=== PATIENT | female | born 1995 | race Caucasian/White ===

== ENCOUNTER 2017-07-31 11:02 | Day surgery (SDC) | payer OTHER ==
[~2017-07-31] VITALS: Ht 162.6 cm; Wt 55.3 kg
[~2017-07-31 11:02] MED LIST: OCELLA 3 MG-0.1 EACH; PERCOCET 7.5-31 EACH PO
--- NOTE | 2017-07-31 13:38 | NUR ---
07/31/17 1338 [facility] O2 DECREASED TO 6L VIA OM.
--- NOTE | 2017-07-31 14:39 | NUR ---
PT IS BROUGHT BACK TO FROM PACU. PT IS NAUSEATED AND DRY HEAVING. PT HAS BEEN MAXED OUT ON HER ZOFRAN ORDERED BY FARM CROPS TEACHER, DUONG. PT DECLINES WATER OR CRACKERS AT THIS TIME. CALL LIGHT IT WITHIN REACH. LIGHTS ARE TURNED OFF. PT'S FAMILY IS IN THE ROOM WITH HER AT THIS TIME. NO OTHER C/O'S AT THIS TIME. WILL REASSESS WITHIN THE HOUR.
--- NOTE | 2017-08-28 07:48 | OR ---
[facility] [address] [place], [place] [address] Signed DATE OF PROCEDURE: 07/31/17 PREOPERATIVE DIAGNOSIS Left lower abdominal pain greater than 1 month, episodic rectal bleeding. POSTOPERATIVE DIAGNOSIS: Normal-appearing colon and rectum and ilium. PROCEDURE: Total colonoscopy to cecum with intubation of ilium with biopsy. SURGEON: Duong Victoria MD. ANESTHESIA Intravenous sedation (Fentanyl 200 mcg, Versed 11 mg), with addition of Propofol infusion (Duong Angulo CRNA). 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 Madera for consideration of persistent left lower abdominal pain with episodic rectal bleeding. Evaluation by her web design intern, Dr. Bermudez, shows no sign of gynecologic problem. She is admitted to undergo colonoscopy. Understands the risks of bleeding, infection, and perforation. Notably, she has no family history of inflammatory bowel disease, though her grandfather had colon cancer in his 50s. FINDINGS The prep was excellent. Complete colonoscopy was undertaken to the cecum with intubation of the ileum. Passage to the sigmoid was particularly difficult and prolonged. Poor tolerance of discomfort was noted despite 200 mcg of Fentanyl and 11 mg of Versed, and on that basis, addition of Propofol infusional anesthesia was given. The colon was very well prepped as was the ileum and there was no evidence of inflammatory lesion, polyps, diverticular formation, colitis, or cancer. Biopsies were taken throughout to assess for occult colitis. DESCRIPTION OF PROCEDURE The patient was brought to the endoscopy suite and placed in lateral decubitus position. Given intravenous sedation to the point of slurred speech and nystagmus. Additional sedation was given as needed. Digital rectal examination was normal. An Olympus video colonoscope was passed in the rectum and manipulated into the sigmoid. Passage much beyond 40 cm was quite difficult due to angulation deformity of the colon. Additional sedation was given as necessary. Extreme care was taken to avoid complications such as perforation. Ultimately, the scope was changed out for a pediatric Electronically Signed By: DUONG VICTORIA MD 08/28/17 0748 PATIENT NAME: JAKE SOLIMAN OPERATIVE REPORT DATE OF : [birth year] PHYSICIAN: DUONG VICTORIA MD REPORT #: [id number] REPORT IS CONFIDENTIAL AND NOT TO BE RELEASED WITHOUT AUTHORIZATION [facility] [address] [place] [address] Signed colonoscope which was passed and the same phenomenon was noted at about the same area in the junction between the sigmoid and left colon. Another adult scope was obtained and anesthesia provided for additional sedation to include Propofol. As by this time, she has had 200 mcg of Fentanyl and 11 mg of Versed. Prior to initiation of Propofol sedation, however, the scope was passed beyond the sigmoid to the left colon and the splenic flexure. Propofol was quite useful in allowing for more relaxation to pass the scope ultimately to the cecum itself. The ileocecal valve and appendiceal orifice were normal. The ileocecal valve was intubated and the ilium appeared completely normal. Biopsies were obtained nevertheless. The scope was then withdrawn to the cecum where biopsies were taken of the right colon. Careful withdrawal of scope showed no evidence of polyps, diverticular formation, colitis, or cancer. Retroflex view in the rectum was similarly normal, though there was some edema and some inflammatory change, no doubt related to various manipulations with the scopes. We will await the pathology on biopsies. Scope was removed and the patient was taken to recovery room in good condition. CONCLUDING DIAGNOSIS Uncertain etiology of her left lower abdominal pain and definitely that of rectal bleeding, both are much improved currently. She may have irritable bowel syndrome. We will recommend a low FODMAP diet in the meantime. We will see her back in 4-6 weeks and assess her progress. MD KYLAH Javier/Millie /[id number] cc: MD Avtar Lopez MD Electronically Signed By: DUONG VICTORIA MD 08/28/17 0748 PATIENT NAME: TABITHA SOLIMANELYNN MIGUE OPERATIVE REPORT DATE OF : [birth year] PHYSICIAN: DUONG VICTORIA MD REPORT #: [id number] REPORT IS CONFIDENTIAL AND NOT TO BE RELEASED WITHOUT AUTHORIZATION
== END 2017-07-31 16:00 | disposition home or self-care (01) ==
LOC: DS 11:02 → OPS 11:02
PROVIDERS: Surgery
PROC: 0DBP8ZX Excision of Rectum, Via Natural or Artificial Opening Endoscopic, Diagnostic (ICD-10-PCS; 2017-07-31)
PROC: 0DBB8ZX Excision of Ileum, Via Natural or Artificial Opening Endoscopic, Diagnostic (ICD-10-PCS; 2017-07-31)
PROC: 0DBM8ZX Excision of Descending Colon, Via Natural or Artificial Opening Endoscopic, Diagnostic (ICD-10-PCS; 2017-07-31)
PROC: 0DBH8ZX Excision of Cecum, Via Natural or Artificial Opening Endoscopic, Diagnostic (ICD-10-PCS; principal; 2017-07-31 11:15)
DX: R10.32 Left lower quadrant pain (principal); K21.9 Gastro-esophageal reflux disease without esophagitis; Z90.49 Acquired absence of other specified parts of digestive tract; Z96.652 Presence of left artificial knee joint
CPT/HCPCS: 00810; J2250; J2405; J2704; J3010; J7120

== ENCOUNTER 2019-02-08 16:43 | Inpatient (IN) | payer BC ==
[~2019-02-08] VITALS: Ht 162.6 cm; Wt 75.0 kg
--- NOTE | 2019-02-08 18:00 | PR ---
[facility] [address] [place], [place] [address] Signed Progress Notes IP Datetime Report Generated by MASHA: 02/08/2019 18:00 PROGRESS NOTES: [id number] Impression: Reassuring heart rate Procedures: Artificial ROM; Sterile Vag Exam Plan: Continue present management Informed Consent Obtain: Vaginal Delivery; Induction of Labor; Risks, Benefits and Alternatives Discussed VITAL SIGNS: [id number] Vital Signs: Reviewed VS Notable Details: mild HTN EXAM: [id number] Dilatation: 3.0 Effacement: 100 Station: -2 Uterine Contractions: q 4 min MEMBRANES: [id number] Membrane Status: Intact ROM Note: AROM with copious clear fluid seen Comments: Doing well. Labs with plat 172k, UA 5.2, Creat 0.76, BUN 13, SGOT 27. Will continue. Fetus A: [id number] FHR Baseline: a30 Variability: Moderate 6-25bpm Accelerations: 15X15 Decelerations: None FHR Category: Category I Presentation: Vertex Comments on Fetus A: No evidence of metabolic acidosis Fetus B: [id number] Signing Physician: Nilda Bermudez MD Copies: ~ *Electronically Signed* 02/08/19 1800 NILDA BERMUDEZ MD PATIENT NAME: JAKE ALBARRAN PROGRESS NOTE DATE OF : 93 PHYSICIAN: NILDA BERMUDEZ MD RPT #: [id number] REPORT IS CONFIDENTIAL AND NOT TO BE RELEASED WITHOUT AUTHORIZATION
--- NOTE | 2019-02-08 19:54 | PR ---
[facility] [address] [place], [place] [address] Signed Progress Notes IP Datetime Report Generated by MASHA: 02/08/2019 19:54 PROGRESS NOTES: [id number] Impression: Slow Progression of Labor Procedures: Scalp Electrode; Sterile Vag Exam Plan: Continue present management Informed Consent Obtain: Vaginal Delivery; Induction of Labor; Risks, Benefits and Alternatives Discussed VITAL SIGNS: [id number] Vital Signs: Reviewed VS Notable Details: mild HTN EXAM: [id number] Dilatation: 3.0 Effacement: 100 Station: -1 Uterine Contractions: q 1 to 3 min MEMBRANES: [id number] Membrane Status: Intact ROM Note: AROM with copious clear fluid seen Comments: Prolonged decel which has now recovered but close observation will be needed. She required multiple position changes as well as O2 and some IVF. She received a single dose of subq terb to allow recovery as well. Will continue observation at this time. Fetus A: [id number] FHR Baseline: 120 Variability: Moderate 6-25bpm Accelerations: 10X10 Decelerations: Prolonged FHR Category: Category II Presentation: Vertex Comments on Fetus A: fetus recovering currently but previously prolonged decel Fetus B: [id number] Signing Physician: Nilda Bermudez MD Copies: ~ *Electronically Signed* 02/08/191953 NILDA BERMUDEZ MD PATIENT NAME: JAKE ALBARRAN PROGRESS NOTE DATE OF : 93 PHYSICIAN: NILDA BERMUDEZ MD RPT #: [id number] REPORT IS CONFIDENTIAL AND NOT TO BE RELEASED WITHOUT AUTHORIZATION
--- NOTE | 2019-02-08 19:59 | PR ---
[facility] [address] [facility] [place], [place] [address] Signed Progress Notes IP Datetime Report Generated by MASHA: 02/08/2019 19:59 PROGRESS NOTES: [id number] Impression: Slow Progression of Labor Procedures: Scalp Electrode; Sterile Vag Exam Plan: Continue present management Informed Consent Obtain: Vaginal Delivery; Induction of Labor; Risks, Benefits and Alternatives Discussed VITAL SIGNS: [id number] Vital Signs: Reviewed VS Notable Details: mild HTN EXAM: [id number] Dilatation: 3.0 Effacement: 100 Station: -1 Uterine Contractions: q 1 to 3 min MEMBRANES: [id number] Membrane Status: Intact ROM Note: AROM with copious clear fluid seen Comments: Continue close observation. Fetus A: [id number] FHR Baseline: unable to determine Variability: Marked >25bpm Accelerations: 10X10 Decelerations: None FHR Category: Category II Presentation: Vertex Comments on Fetus A: reassuring with marked variability though baseline cannot be determined presently Fetus B: [id number] Signing Physician: Nilda Bermudez MD Copies: ~ *Electronically Signed* 02/08/191958 NILDA BERMUDEZ MD PATIENT NAME: JAKE ALBARRAN PROGRESS NOTE DATE OF : 93 PHYSICIAN: NILDA BERMUDEZ MD RPT #: [id number] REPORT IS CONFIDENTIAL AND NOT TO BE RELEASED WITHOUT AUTHORIZATION
--- NOTE | 2019-02-09 09:42 | PR ---
[facility] [address] [facility] [place], [place] [address] Signed PP Progress Notes Datetime Report Generated by CPN: 02/09/2019 09:42 SUBJECTIVE: [id number] Pain: Within normal limits Vital Signs: [id number] Vital Signs: Reviewed; Within Normal Limits EXAM: [id number] Cardiovascular: Not Done Respiratory: Not Done Abdomen/Uterus: Abnormal Lochia: Normal Vulva/Perineum: Not Done Breasts: Not Done CVA Tenderness: Not Done Extremities: Normal Incision: Not Applicable Progress: Normal Exam Comments: Fundus firm, NT @ U-1. H/H 10.9/31.9, WBC 14.7, plat 150k IMPRESSION/PLAN/PROCEDURES: [id number] Impression: Normal progression Other Impression: BPs improved Plan: Continue present management Progress Notes: Doing well. BPs improving. Probable D/C home tomorrow. Signing Physician: Nilda Bermudez MD Copies: ~ *Electronically Signed* 02/09/19 0942 NILDA BERMUDEZ MD PATIENT NAME: JAKE ALBARRAN PROGRESS NOTE DATE OF : 93 PHYSICIAN: NILDA BERMUDEZ MD RPT #: [id number] REPORT IS CONFIDENTIAL AND NOT TO BE RELEASED WITHOUT AUTHORIZATION
--- NOTE | 2019-02-10 07:25 | PR ---
[facility] [address] [facility] [place], [place] [address] Signed PP Progress Notes Datetime Report Generated by CPAlba: 02/10/2019 07:25 SUBJECTIVE: [id number] Pain: Within normal limits Vital Signs: [id number] Vital Signs: Reviewed; Within Normal Limits EXAM: [id number] Cardiovascular: Not Done Respiratory: Not Done Abdomen/Uterus: Abnormal Lochia: Normal Vulva/Perineum: Normal Breasts: Not Done CVA Tenderness: Not Done Extremities: Normal Incision: Not Applicable Progress: Normal Exam Comments: Fundus firm, NT @ U-1. Perineum with minimal edema IMPRESSION/PLAN/PROCEDURES: [id number] Impression: Normal progression Other Impression: BPs improved Plan: Discharge Procedures: Rhogam Progress Notes: Doing well. She is ready for D/C. Signing Physician: Nilda Bermudez MD Copies: ~ *Electronically Signed* 02/10/19724 NILDA BERMUDEZ MD PATIENT NAME: JAKE ALBARRAN PROGRESS NOTE DATE OF : 93 PHYSICIAN: NILDA BERMUDEZ MD RPT #: [id number] REPORT IS CONFIDENTIAL AND NOT TO BE RELEASED WITHOUT AUTHORIZATION
== END 2019-02-10 17:30 | disposition home or self-care (01) | DRG 807 ==
LOC: FBCO 16:43 → FBC 16:45
PROVIDERS: ADMIT Obstetrics & Gynecology
PROC: 10E0XZZ Delivery of Products of Conception, External Approach (ICD-10-PCS; principal; 2019-02-08)
PROC: 0KQM0ZZ Repair Perineum Muscle, Open Approach (ICD-10-PCS; 2019-02-08)
PROC: 10907ZC Drainage of Amniotic Fluid, Therapeutic from Products of Conception, Via Natural or Artificial Opening (ICD-10-PCS; 2019-02-08)
PROC: 3E0234Z Introduction of Serum, Toxoid and Vaccine into Muscle, Percutaneous Approach (ICD-10-PCS; 2019-02-09)
DX: O14.94 Unspecified pre-eclampsia, complicating childbirth (principal); Z37.0 Single live birth; Z3A.39 39 weeks gestation of pregnancy; O26.893 Other specified pregnancy related conditions, third trimester; O76 Abnormality in fetal heart rate and rhythm complicating labor and delivery; O69.1XX0 Labor and delivery complicated by cord around neck, with compression, not applicable or unspecified; O70.1 Second degree perineal laceration during delivery; Z67.11 Type A blood, Rh negative; O99.52 Diseases of the respiratory system complicating childbirth; J30.2 Other seasonal allergic rhinitis; O24.420 Gestational diabetes mellitus in childbirth, diet controlled
CPT/HCPCS: 36415; 82565; 83030; 84450; 84520; 84550; 85025; 85027; 86850; 86900; 86901; J2590; J2790

== ENCOUNTER 2021-07-16 01:29 | Inpatient (IN) | payer BC ==
--- NOTE | 2021-07-16 07:22 | PR ---
[facility] [address] [facility] [place], [place] [address] Signed Progress Notes IP Datetime Report Generated by CPAlba: 07/16/2021 07:22 PROGRESS NOTES: [id number] Impression: Normal Progression of Labor Procedures: Artificial ROM Plan: Continue Present Management VITAL SIGNS: [id number] Vital Signs: Reviewed; Within Normal Limits EXAM: [id number] Dilatation: 4.0 Effacement: 90 Station: -2 Contractions: q 1 to 3 min MEMBRANES: [id number] Comments: Some progress. Will encourage position changes. FETUS A: [id number] FHR Baseline: 140 Variability: Moderate 6-25bpm Accelerations: 10X10 Decelerations: None FHR Category: Category I Presentation: Vertex Comments on Fetus A: sketchy but reassuring FETUS B: [id number] Signing Physician: Nilda Bermudez MD Copies: ~ *Electronically Signed* 07/16/21721 NILDA BERMUDEZ MD PATIENT NAME: JAKE ALBARRAN PROGRESS NOTE DATE OF : 93 PHYSICIAN: NILDA BERMUDEZ MD RPT #: [id number] REPORT IS CONFIDENTIAL AND NOT TO BE RELEASED WITHOUT AUTHORIZATION
--- NOTE | 2021-07-16 12:38 | PR ---
[facility] [address] [facility] [place], [place] [address] Signed PP Progress Notes Datetime Report Generated by MASHA: 07/16/2021 12:38 SUBJECTIVE: [id number] Pain: Abnormal Pain Comments: swelling and pain at perineum Vital Signs: L3173411 Vital Signs: Reviewed; Within Normal Limits EXAM: Ongoing Abdomen/Uterus: Abnormal Vulva/Perineum: Abnormal Exam Comments: approx 3 cm hematoma on left perineum (to the left of the laceration). It is tense. It does not extend into the vagina. Fundus firm, at U-4 IMPRESSION/PLAN/PROCEDURES: [id number] Other Impression: perineal hematoma Plan: Continue Present Management Other Plans: ice to area, avoid sitting Progress Notes: Small hematoma without evidence of extension into the vagina. No additional treatment is needed other than continuing the icing and avoiding pressure on the area. Discussed pain management with the patient as well. Will continue observation. Signing Physician: Nilda Bermudez MD Copies: ~ *Electronically Signed* 07/16/21 1238 NILDA BERMUDEZ MD PATIENT NAME: REBECCA ALBARRANNN MIGUE PROGRESS NOTE DATE OF : 93 PHYSICIAN: NILDA BERMUDEZ MD RPT #: [id number] REPORT IS CONFIDENTIAL AND NOT TO BE RELEASED WITHOUT AUTHORIZATION
--- NOTE | 2021-07-17 08:10 | PR ---
[facility] [address] [facility] [place], [place] [address] Signed PP Progress Notes Datetime Report Generated by CPN: 07/17/2021 08:10 SUBJECTIVE: [id number] Pain: Within Normal Limits Pain Comments: Feeling better this am Vital Signs: B3541710 Vital Signs: Reviewed; Within Normal Limits EXAM: Ongoing Cardiovascular: Not Done Respiratory: Not Done Abdomen/Uterus: Abnormal Lochia: Normal Vulva/Perineum: Abnormal Breasts: Not Done CVA Tenderness: Not Done Extremities: Normal Incision: Not Applicable Progress: Normal Exam Comments: Fundus firm, NT @ U-4 Perineum with bruising and swelling L>R but improved from yesterday H/H 11.2/33.2, WBC 10.8, plat 176k IMPRESSION/PLAN/PROCEDURES: [id number] Impression: Normal Progression Other Impression: Perineal hematoma Plan: Discharge Other Plans: ice to area, avoid sitting Progress Notes: She is feeling better and is interested in discharge home today. Her hematoma is improving. Signing Physician: Nilda Bermudez MD Copies: ~ *Electronically Signed* 07/17/21809 NILDA BERMUDEZ MD PATIENT NAME: JAKE ALBARRAN PROGRESS NOTE DATE OF : 93 PHYSICIAN: NILDA BERMUDEZ MD RPT #: [id number] REPORT IS CONFIDENTIAL AND NOT TO BE RELEASED WITHOUT AUTHORIZATION
--- NOTE | 2021-07-17 08:11 | PR ---
[facility] [address] [facility] [place], [place] [address] Signed PP Progress Notes Datetime Report Generated by CPN: 07/17/2021 08:11 SUBJECTIVE: [id number] Pain: Within Normal Limits Pain Comments: Feeling better this am Vital Signs: [id number] Vital Signs: Reviewed; Within Normal Limits EXAM: Ongoing Cardiovascular: Not Done Respiratory: Not Done Abdomen/Uterus: Abnormal Lochia: Normal Vulva/Perineum: Abnormal Breasts: Not Done CVA Tenderness: Not Done Extremities: Normal Incision: Not Applicable Progress: Normal Exam Comments: Fundus firm, NT @ U-4 Perineum with bruising and swelling L>R but improved from yesterday H/H 11.2/33.2, WBC 10.8, plat 176k IMPRESSION/PLAN/PROCEDURES: [id number] Impression: Normal Progression Other Impression: Perineal hematoma Plan: Discharge Other Plans: ice to area, avoid sitting Progress Notes: She is feeling better and is interested in discharge home today. Her hematoma is improving. Signing Physician: Nilda Bermudez MD Copies: ~ *Electronically Signed* 07/17/21810 NILDA BERMUDEZ MD PATIENT NAME: JAKE ALBARRAN PROGRESS NOTE DATE OF : 93 PHYSICIAN: NILDA BERMUDEZ MD RPT #: [id number] REPORT IS CONFIDENTIAL AND NOT TO BE RELEASED WITHOUT AUTHORIZATION
== END 2021-07-17 11:50 | disposition home or self-care (01) | DRG 807 ==
LOC: FBCO 01:29 → FBC 03:20
PROVIDERS: ADMIT Obstetrics & Gynecology; ATTEND Obstetrics & Gynecology
PROC: 10E0XZZ Delivery of Products of Conception, External Approach (ICD-10-PCS; principal; 2021-07-16)
PROC: 0KQM0ZZ Repair Perineum Muscle, Open Approach (ICD-10-PCS; 2021-07-16)
PROC: 10907ZC Drainage of Amniotic Fluid, Therapeutic from Products of Conception, Via Natural or Artificial Opening (ICD-10-PCS; 2021-07-16)
DX: O70.1 Second degree perineal laceration during delivery (principal); Z37.0 Single live birth; Z3A.37 37 weeks gestation of pregnancy; Z20.822 Contact with and (suspected) exposure to COVID-19
CPT/HCPCS: 83030; 85027; 86850; 86870; 86900; 86901; A9270; J2590; J2790; U0003

== ENCOUNTER 2021-08-01 09:20 | Emergency (ER) | payer BC ==
[~2021-08-01] VITALS: Ht 152.4 cm; Wt 62.6 kg
[2021-08-01] MEDS ORDERED: OMEPRAZOLE20 MG PO ×2 (09:58)
[2021-08-01] MEDS ORDERED: BUSPIRONE HCL10 MG PO ×2 (09:58)
[2021-08-01] MEDS ORDERED: BENADRYL ALLERG25 MG PO ×2 (09:59)
[2021-08-01] MEDS ORDERED: ALLEGRA ALLERG180 MG PO ×2 (09:59)
[2021-08-01] MEDS ORDERED: FLONASE ALLERG9.9 ML ×2 (09:59)
[2021-08-01] MEDS ORDERED: IRON240 MG PO ×2 (10:00)
[2021-08-01] MEDS ORDERED: PRENATAL FORMU1 EAC3 PO ×2 (10:00)
[2021-08-02] MEDS ORDERED: DIMENHYDRINATE50 MG PO ×2 (12:40)
[2021-08-02] MEDS ORDERED: EYLEA2 MG/0.05 ×2 (12:40)
--- NOTE | 2021-08-02 21:30 | EKG ---
[facility] [address] [facility] [place] [address] Signed Sinus tachycardia with short LA Right atrial enlargement ST \T\ T wave abnormality, consider inferior ischemia Abnormal ECG When compared with ECG of 01-AUG-2021 09:26, (Unconfirmed) T wave inversion now evident in Inferior leads Nonspecific T wave abnormality now evident in Lateral leads Confirmed by AUGUST PYLE DO ([id number]) on 08/02/2021 9:30:37 PM Electronically Signed By: AUGUST PYLE DO 08/02/210 PATIENT NAME: JAKE ALBARRAN Electrocardiogram DATE OF : 93 PHYSICIAN: AUGUST PYLE DO REPORT #: [id number] REPORT IS CONFIDENTIAL AND NOT TO BE RELEASED WITHOUT AUTHORIZATION
--- NOTE | 2021-08-02 21:32 | EKG ---
[facility] [address] [facility] [place], [place] [address] Signed Sinus rhythm with short [place] Otherwise normal ECG No previous ECGs available Confirmed by AUGUST PYLE DO ([id number]) on 08/02/2021 9:32:11 PM Electronically Signed By: AUGUST PYLE DO 08/02/212131 PATIENT NAME: JAKE ALBARRAN Electrocardiogram DATE OF : 93 PHYSICIAN: AUGUST PYLE DO REPORT #: [id number] REPORT IS CONFIDENTIAL AND NOT TO BE RELEASED WITHOUT AUTHORIZATION
== END 2021-08-01 14:00 | disposition home or self-care (01) ==
LOC: ED 09:20
DX: R07.2 Precordial pain (principal); R06.00 Dyspnea, unspecified; R00.0 Tachycardia, unspecified; Z88.5 Allergy status to narcotic agent; Z79.899 Other long term (current) drug therapy
CPT/HCPCS: 71045; 71260; 80053; 83735; 83880; 84484; 85025; 93005; 93010; 99285-25; A9270; J7030; Q9967

== ENCOUNTER 2021-08-02 12:04 | Day surgery (SDC) | payer BC ==
[~2021-08-02] VITALS: Ht 162.6 cm; Wt 62.0 kg
--- NOTE | ~2021-08-02 | OR ---
[facility] [address] [place], [place] [address] Draft DATE OF OPERATION: 08/02/2021 SURGEON: Nilda Bermudez MD PREOPERATIVE DIAGNOSIS: Possible retained endometrial products. POSTOPERATIVE DIAGNOSIS: Possible retained endometrial products. PROCEDURE: Hysteroscopy D and C. ANESTHESIA: General LMA. ESTIMATED BLOOD LOSS: 25 mL. DRAINS: None. INDICATIONS AND FINDINGS: The patient is a 26-year-old female 3, para 2, AB1, who is now 18 days following her last delivery which was a spontaneous delivery without any complications other than a perineal hematoma which has subsequently resolved. She has been having ongoing discomfort in the pelvic area and initially some low-grade temperature elevations. She has had two courses of antibiotics without significant improvement. Her bleeding has been very minimal. Ultrasound was done which showed probable retained products. She was then taken to the operating room where her uterus was found to be about 12 week size and soft. The os was open and easily accepted #6 dilator. There did appear to be some retained polypoid fragments inside the uterus. DESCRIPTION OF PROCEDURE: The patient was prepped and draped in the dorsal lithotomy position. A weighted speculum was placed and the anterior lip of the cervix was visualized and grasped with a single-tooth tenaculum. The os easily accepted #6 dilator and she was dilated to a #8. The MyoSure device was then placed and the cavity evaluated. There did appear to be multiple polypoid type areas. Subsequent to this, the MyoSure device was removed and D and C was done with removal of some placental type fragments. This was done fairly PATIENT NAME: JAKE ALBARRAN OPERATIVE REPORT DATE OF : 93 REPORT #: [id number] PHYSICIAN: NILDA BERMUDEZ MD PCP: NO PRIMARY CARE PHYSICIAN REPORT IS CONFIDENTIAL AND NOT TO BE RELEASED WITHOUT AUTHORIZATION [facility] [address] [place] [address] Draft gently. The hysteroscope was replaced and there did appear to be another area which had not been removed by the D and C, and this was resected using the MyoSure Lite. Following this, the procedure was terminated. The tenaculum was removed from the cervix. There was no evidence of any ongoing bleeding. The patient was then taken to the recovery room. Her uterus did seem to become smaller and more contracted as the procedure went on. All sponge and needle counts were correct. She was taken to recovery room in good condition. MD EFE TellesW/MODL /[id number] Copies: ~ PATIENT NAME: JAKE ALBARRAN OPERATIVE REPORT DATE OF : 93 REPORT #: [id number] PHYSICIAN: NILDA BERMUDEZ MD PCP: NO PRIMARY CARE PHYSICIAN REPORT IS CONFIDENTIAL AND NOT TO BE RELEASED WITHOUT AUTHORIZATION
[~2021-08-02 12:04] MED LIST changes: +ALLEGRA ALLERG180 MG PO; +BENADRYL ALLERG25 MG PO; +BUSPIRONE HCL10 MG PO; +FLONASE ALLERG9.9 ML; +IRON240 MG PO; +OMEPRAZOLE20 MG PO; +PRENATAL FORMU1 EAC3 PO
[2021-08-02] MEDS ORDERED: DIMENHYDRINATE50 MG PO ×2 (12:40)
[2021-08-02] MEDS ORDERED: EYLEA2 MG/0.05 ×2 (12:40)
--- NOTE | 2021-08-02 15:05 | NUR ---
08/02/21 1505 Sandra Ott 1450- PT ARRIVES TO PACU NONAROUSABLE TO NOXIOUS STIMULI WITH AN OPA IN PLACE. RESP EVEN AND UNLABORED. OXYGEN SAT HIGH 90'S TO 100% ON 6L VIA MASK.
--- NOTE | 2021-08-02 15:48 | NUR ---
1540 PT BACK TO ROOM FROM PACU ALERT AND AWAKE PT REQUEST CHICKEN BROTH AND JELLO TOLERATED WELL.
--- NOTE | 2021-08-02 17:01 | NUR ---
1620 PT UP TO BATHROOM WITH MINIMAL ASSIST, SHE WAS ABLE TO VOID 600ML OF SLIGHTLY BLOOD TINGED URINE.
--- NOTE | 2021-08-02 17:02 | NUR ---
1630 PT DENIES PAIN OR NAUSEA SHE REPORTS READINESS TO GO HOME, RUDI PAD WITH SMALL SPOT OF LIGHT RED BLOOD.
--- NOTE | 2021-08-05 15:53 | PATH ---
[facility] [address] [place], [place] [address] Signed SPECIMEN(S): A RETAINED PLACENTA SPECIMEN SOURCE: A. RETAINED PLACENTA CLINICAL HISTORY: Hysteroscopy DC. 18 days. FINAL PATHOLOGIC DIAGNOSIS: Retained placenta: - Fragments of endometrium with associated necrotic tissue, decidualized change, and prominent vasculature with blood, consistent with features seen in retained placental products. TWK:[facility]:C2NR MICROSCOPIC EXAMINATION: Histologic sections of all submitted blocks are examined by light microscopy. These findings, together with the gross examination, support the pathologic diagnosis. GROSS DESCRIPTION: The specimen, labeled "KE, A.," and designated on the requisition "retained products," is received in formalin and consists of multiple fragments of pink-quintero soft tissue and red-brown clot (6.0 x 4.0 x 1.0 cm). Wood Heel Attacher sections are submitted in cassette (A1). AC (under the direct supervision of a pathologist) The Gross Description was prepared using a voice recognition system. The report was reviewed for accuracy; however, sound-alike word errors, addition and/or deletions may occur. If there is any question about this report, please contact Client Services. PERFORMING LABORATORY: The technical component was performed by [employer], [address] [place] [address] (Pouring Crane Operator: Cuca Bedoya MD; CLIA# [id number]). [facility], [address] [address] (CLIA# [id number]). Diagnostician: Laci Wright MD Pathologist Electronically Signed 08/05/2021 PATIENT NAME: JAKE ALBARRAN PATHOLOGY DATE OF : 93 REPORT #: [id number] PHYSICIAN: [facility] PCP: NO PRIMARY CARE PHYSICIAN REPORT IS CONFIDENTIAL AND NOT TO BE RELEASED WITHOUT AUTHORIZATION [address] [address] Signed Copies: ~ PATIENT NAME: JAKE ALBARRAN PATHOLOGY DATE OF : 93 REPORT #: [id number] PHYSICIAN: [facility] PCP: NO PRIMARY CARE PHYSICIAN REPORT IS CONFIDENTIAL AND NOT TO BE RELEASED WITHOUT AUTHORIZATION
== END 2021-08-02 16:50 | disposition home or self-care (01) ==
LOC: DS 12:04
PROVIDERS: ATTEND Obstetrics & Gynecology
PROC: 10D18ZZ Extraction of Products of Conception, Retained, Via Natural or Artificial Opening Endoscopic (ICD-10-PCS; principal; 2021-08-02 14:00)
DX: O73.1 Retained portions of placenta and membranes, without hemorrhage (principal); Z20.822 Contact with and (suspected) exposure to COVID-19
CPT/HCPCS: 80053; 83735; J0131; J0690; J1100; J1644; J1885; J2250; J2405; J2590; J2704; J2765; J3010; J7121; U0003

== ENCOUNTER 2021-08-05 17:46 | Emergency (ER) | payer BC ==
[~2021-08-05] VITALS: Ht 162.6 cm; Wt 61.7 kg
[~2021-08-05 17:46] MED LIST changes: +DIMENHYDRINATE50 MG PO; +EYLEA2 MG/0.05
--- OUTSIDE RECORDS SUMMARY | 2021-08-05 17:54 | XMS ---
PreManage Notification: JAKE ALBARRAN Security Tool And Machine Maintainer Events No recent Security Events currently on file CRITERIA MET - [facility] - 2 Visits in 30 Days CARE PROVIDERS SHEILA BAIN Registered Nurse 03/04/2021-Current PHONE: [phone] Blade has no Care Guidelines for this patient. [place] VISIT COUNT (12 MO.) 2 [facility] TOTAL 2 NOTE: Visits indicate total known visits. ED/UCC VISIT TRACKING (12 MO.) 08/05/2021 17:47 [facility] [place] TYPE: Emergency COMPLAINT: - NUMBNESS 08/01/2021 09:21 [facility] [place] TYPE: Emergency COMPLAINT: - SOB, CHEST PAIN, DIZZINESS DIAGNOSES: - Allergy status to narcotic agent - Precordial pain - Dyspnea, unspecified - Tachycardia, unspecified - Other intermodal dispatcher (current) drug therapy INPATIENT VISIT TRACKING (12 MO.) 07/16/2021 03:[address] [facility] [place] TYPE: [facility] COMPLAINT: - LABOR DIAGNOSES: - Single live - Encounter for supervision of other normal , third trimester - Single live - 37 weeks gestation of - Second degree perineal laceration during delivery - Encounter for full-term uncomplicated delivery - 37 weeks gestation of [email or web address]
== END 2021-08-05 20:55 | disposition home or self-care (01) ==
LOC: ED 17:46
DX: O99.893 Other specified diseases and conditions complicating puerperium (principal); R20.2 Paresthesia of skin; Z88.5 Allergy status to narcotic agent; Z79.899 Other long term (current) drug therapy
CPT/HCPCS: 70496; 80053; 85025; 99284-25; Q9967

== ENCOUNTER 2021-08-09 05:18 | Inpatient (IN) | payer BC ==
[~2021-08-09] VITALS: Ht 162.6 cm; Wt 61.8 kg
[~2021-08-09 05:18] MED LIST changes: -FLONASE ALLERG9.9 ML; +FLONASE ALLERG9.9 ML NAS; -OMEPRAZOLE20 MG PO; +PRILOSEC OTC20 MG PO
--- OUTSIDE RECORDS SUMMARY | 2021-08-09 05:26 | XMS ---
PreManage Notification: JAKE ALBARRAN Security Supervisor Volunteer Services Events No recent Security Events currently on file CRITERIA MET - [facility] - 2 Visits in 30 Days CARE PROVIDERS SHEILA BAIN Registered Nurse 03/04/2021-Current PHONE: [phone] ANICETO SHAH Internal Medicine 08/06/2021-Current PHONE: [phone] Blade has no Care Guidelines for this patient. Care History Medical/Surgical 08/06/2021 [facility] - Patient is currently established with [facility]. If patient is seen in the ED during business hours. Please contact CHWs at [facility]. Care Recommendation: If this patient has had 5 or more Emergency Department visits in the last 12 months.\T\nbsp; Patient will require education on the scope and purpose of the ED as an acute care provider not a Primary Care Provider and should not be utilized for chronic conditions.\T\nbsp; These are guidelines and the provider should exercise clinical judgment when providing care. E.D. VISIT COUNT (12 MO.) [address] [facility] TOTAL 3 NOTE: Visits indicate total known visits. ED/UCC VISIT TRACKING (12 MO.) 08/09/2021 05:19 [facility] [place] TYPE: Emergency COMPLAINT: - WEAKNESS 08/05/2021 17:47 [facility] [place] TYPE: Emergency COMPLAINT: - NUMBNESS DIAGNOSES: - Allergy status to narcotic agent - Other specified diseases and conditions complicating puerperium - Anesthesia of skin - Other moth exterminator (current) drug therapy - Paresthesia of skin 08/01/2021 09:21 [facility] [place] TYPE: Emergency COMPLAINT: - SOB, CHEST PAIN, DIZZINESS DIAGNOSES: - Allergy status to narcotic agent - Precordial pain - Dyspnea, unspecified - Tachycardia, unspecified - Other moth exterminator (current) drug therapy INPATIENT VISIT TRACKING (12 MO.) 07/16/2021 03:20 [facility] [place] TYPE: [facility] COMPLAINT: - LABOR DIAGNOSES: - Single live - Encounter for supervision of other normal , third trimester - Single live - 37 weeks gestation of - Second degree perineal laceration during delivery - Encounter for full-term uncomplicated delivery - 37 weeks gestation of [email or web address]
--- NOTE | 2021-08-09 07:35 | EKG ---
[facility] [address] [place] [address] Signed Sinus rhythm with short VT Otherwise normal ECG When compared with ECG of 01-AUG-2021 10:33, Vent. rate has decreased BY [address] no longer depressed in Inferior leads consider early repolarization Non-specific change in ST segment in Lateral leads T wave inversion no longer evident in Inferior leads Nonspecific T wave abnormality no longer evident in Lateral leads Confirmed by RUDY ARMIJO MD ([id number]) on 08/09/2021 7:34:55 AM Electronically Signed By: RUDY ARMIJO MD 08/09/21 0735 PATIENT NAME: JAKE ALBARRAN Electrocardiogram DATE OF : [birth year] PHYSICIAN: RUDY ARMIJO MD REPORT #: [id number] REPORT IS CONFIDENTIAL AND NOT TO BE RELEASED WITHOUT AUTHORIZATION
--- NOTE | 2021-08-09 13:00 | NUR ---
PT ARRIVED TO FLOOR VIA STRETCHER. TELE 7 PLACED. VITALS TAKEN. PT IS AAOX4. AT BEDSIDE. CALL LIGHT IN REACH. PAIN REPORTED 3/10. REPORTS SOME NASUEA. STILL SOME NAUSEA. HR 94 AND IRREGULAR. CALL LIGHT IN REACH.
--- NOTE | 2021-08-09 13:00 | NUR ---
REPORT RECEIVED FROM STRADDLE TRUCK OPERATOR AND PT ADMITTED BY CLIENT SERVICES REPRESENTATIVE. IVF INFUSING. PT. REPORTS NAUSEA AND ZOFRAN ADMIN. SHE REPORTS LOWER ABD/PELVIC PAIN THAT IS THROBBING AND 3/10, BUT REFUSES PAIN MED AT THIS TIME. RIGHT RADIAL PULSE WEAKER THAN LEFT. PT. REPORTS DIZZINESS WITH SITTING UP AND WITH AMBULATION. TELE MONITOR SHOW HR AT 133 BPM WITH AMBULATION. PT. ORDERED LUNCH. IV PATENT AND FLUSHES. DISCUSSED SAFETY, MEDS, POC. LEFT RESTING WITH AT BEDSIDE.
[2021-08-09] MEDS ORDERED: MIDODRINE HCL5 MG PO (14:22)
[2021-08-09] MEDS ORDERED: ONDANSETRON HCL4 MG PO (14:34)
[2021-08-09] MEDS ORDERED: FLUCONAZOLE150 MG PO (14:35)
[2021-08-09] MEDS ORDERED: METOCLOPRAMIDE10 MG PO (14:37)
--- NOTE | 2021-08-09 17:01 | NUR ---
PT. REPORTS H.A. REFUSES PAIN MEDS AT THIS TIME. PELVIC PAIN REMAINS UNCHANGED. PT. CONTINUES TO HAVE INTERMITTENT N/T IN ALL EXTREMITIES. BLOOD PRESSURE WAS 154/85 AND HR IN THE 50'S. MIDODRINE ADMIN. TWO HOURS PRIOR. PT. REQUESTED NYSTATIN FOR ORAL THRUSH, SHE HAD BEEN TAKING AT HOME. NOTIFIED. PT. DENIED FURTHER NEEDS AND LEFT RESTING WITH IN THE ROOM.
[2021-08-09] MEDS ORDERED: PROBIOTIC1 EAC1 PO (17:12)
[2021-08-09] MEDS ORDERED: VITAMIN C1000 MG PO (17:13)
[2021-08-09] MEDS ORDERED: VITAMIN D350 MC3 PO (17:13)
--- NOTE | 2021-08-09 17:13 | NUR ---
MED REC COMPLETE
--- NOTE | 2021-08-09 19:00 | NUR ---
SHIFT REPORT RECEIVED FROM DAYSHIFT CT LONG AT BEDSIDE. pt AWAKE AND RESTING IN BED, TELE#[address], HR WNL, SINUS RHYTHM. NO NEEDS VERBALIZED, CALL LIGHT IN REACH.
--- NOTE | 2021-08-09 20:44 | NUR ---
ASSESSMENT COMPLETE, MEDS GIVEN (SEE EMAR). VSS, pt DENIES DIZZINESS AND SOB AT REST, TELE#[address], HR 80'S, SINUS RHYTHM. CMS INTACT, pt DENIES NUMBNESS AND TINGLING AT THIS TIME, IN ROOM AND ASSISTS WITH AMBULATION IF NEEDED. pt [place] NAUSEA, BOWEL TONES ACTIVE. EVENING SNAC PROVIDED. IV SITE SALINE LOCKED AND WRAPPED pt REQUESTS TO TAKE EVENING SHOWER. NO FURTHER NEEDS, CALL LIGHT IN REACH.
--- NOTE | 2021-08-09 20:45 | NUR ---
IN TO GET VITALS, WRAP IV SITE, FRESH ICE WATER AND APPLE SAUCE PROVIDED, PT READY FOR EVENING SHOWER, NO FURTHER NEEDS AT THIS TIME
--- NOTE | 2021-08-09 22:00 | NUR ---
pt BACK IN BED FROM SHOWER, IV FLUIDS RESUMED AND FLUSHES EASILY. SITE WNL, NO ADDITIONAL NEEDS. CALL LIGHT IN REACH, TIERRA IN ROOM.
--- NOTE | 2021-08-09 22:28 | NUR ---
PATIENT CALLED NURSES STATION REQUESTING ICE WATER. ICE WATER WAS PROVIDED TO PT AND PT . PATIENT BREASTMILK WAS PLACED IN ZIPLOC WITH PT STICKER IN REFRIDGERATOR. PATIENT WAS PROVIDED WITH SNACKS. NO OTHER IMMEDIATE NEEDS AT THIS TIME.
--- NOTE | 2021-08-10 00:05 | NUR ---
pt RESTING QUIETLY IN BED WITH EYES CLOSED, RR EVEN AND UNLABORED. IV FLUIDS INFUSING DIRECTED, NO NEEDS OR CONCERNS VERBALIZED. CALL LIGHT IN REACH.
--- NOTE | 2021-08-10 02:10 | NUR ---
IN TO GET VITALS, PT UP TO VOID, UP AT BEDSIDE TO PUMP, NO FURTHER NEEDS AT THIS TIME, WILL CALL WHEN FINISHED
--- NOTE | 2021-08-10 03:21 | NUR ---
ASSESSMENT COMPLETE, NO NEW CHANGES OR CONCERNS. pt REPORTS 2/10 PAIN IN PELVIC AREA, NIO FOR PRN TYLENOL ORDERED AND GIVEN (SEE EMAR). IV SITE WNL, FLUIDS INFUSING DIRECTED. PUDDING PROVIDED, NO FURTHER NEEDS, CALL LIGHT IN REACH.
--- NOTE | 2021-08-10 05:27 | NUR ---
TELE#[address], HR UP TO 142 pt STATES, "I WOKE UP AND COULD TELL IT WAS HIGH AND I FELT PALPITATIONS". pt THEN UP SBA WITH TO VOID AND BACK TO BED. FRESH WATER PROVIDED, NO FURTHER NEEDS. CALL LIGHT IN REACH.
--- NOTE | 2021-08-10 05:38 | NUR ---
PATIENT VITALS AND IS AND OS CHARTED. ROOM TIDIED, CALL LIGHT WITHIN REACH, PT REFUSED FRESH ICE WATER. NO OTHER IMMEDIATE NEEDS AT THIS TIME.
--- NOTE | 2021-08-10 06:32 | NUR ---
new bag iv fluids hung and infusing as directed, iv site wnl. no further needs, call light in reach.
--- NOTE | 2021-08-10 07:20 | NUR ---
Report received, pt resting in bed at this time, no needs identified. Will continue plan of care.
--- NOTE | 2021-08-10 08:00 | NUR ---
Scheduled medications administered, assessment complete. Patient ambulates to bathroom with her , tele in place, states feels palpitations after exertion. HRR, 70's-115 range after ambulation. Breakfast ordered, patient states no other needs, call light in reach.
--- NOTE | 2021-08-10 08:35 | NUR ---
Call light answered, pt requests PRN medication for nausea. Pt sitting up at bedside, emesis bag in hand. PRN Zofran administered. IVF infusing WNL. No further needs at this time.
--- NOTE | 2021-08-10 08:45 | NUR ---
PRN zofran administered for nausea. Pt sitting up at bedside, emesis bag in hand. She states no further needs at this time, continuing to monitor
--- NOTE | 2021-08-10 09:43 | NUR ---
PATIENT SITTING UP IN BED WATCHING TV, IN ROOM. VITALS AND I&O'S CHARTED. CALL LIGHT IN REACH. NO FURTHER NEEDS AT THIS TIME.
--- NOTE | 2021-08-10 12:30 | NUR ---
Scheduled medications administered. Pt ambulates to BR with SBA with her . Tele in place, pt states feeling slightly lightheaded but overall well. IVF infusing WNL. No further needs at this time
--- NOTE | 2021-08-10 12:50 | NUR ---
PATIENT IN CHAIR AT THIS TIME, IND. AND BABY IN ROOM. LINENS CHANGED. PATIENT HAS SHOWER AND AM CARE SUPPLIES IN ROOM. CALL LIGHT IN REACH. NO FURTHER NEEDS AT THIS TIME.
--- NOTE | 2021-08-10 13:45 | NUR ---
Pt saline locked, fresh ice water provided, pt has no further needs at this time, at bedside
--- NOTE | 2021-08-10 14:00 | NUR ---
Discussed plan of care with patient who states feeling like she is engaged in her care and has no questions or concerns.
--- NOTE | 2021-08-10 14:10 | NUR ---
PATIENT IN BED RESTING AT THIS TIME AND WOULD LIKE TO TAKE A NAP AFTER THIS. AND BABY IN ROOM. VITALS AND I&O'S CHARTED. BLOOD PRESSURE HIGH, RN NOTIFIED. CALL LIGHT IN REACH. NO FURTHER NEEDS AT THIS TIME.
--- NOTE | 2021-08-10 15:30 | NUR ---
Medications administered, pt states feeling well at this time. No sx of bradycardia, HR in 60's, tele in place. Saline locked, on room air, A+O. No Assessment WNL. No further needs at this time.
--- NOTE | 2021-08-10 17:20 | NUR ---
Meds administered, pt resting in bed and states no further needs, orders dinner and call light in reach.
--- NOTE | 2021-08-10 18:04 | NUR ---
PATIENT UP TO BATHROOM AND BACK TO BED, IND. VITALS AND I&O'S CHARTED. CALL LIGHT IN REACH. NO FURTHER NEEDS AT THIS TIME.
--- NOTE | 2021-08-10 19:25 | NUR ---
SHIFT REPORT RECEIVED FROM BABITATNROSITA DONG AT BEDSIDE, pt AWAKE AND RESTING IN CHAIR. NO NEEDS OR CONCERNS VERBALIZED, CALL LIGHT IN REACH AND TIERRA IN ROOM. TELE#[address], SINUS RHYTHM, HR WNL.
--- NOTE | 2021-08-10 20:15 | NUR ---
IN TO GET VITALS, I&Os, PT AND ON PHONE WITH FAMILY, NO FURTHER NEEDS AT THIS TIME
--- NOTE | 2021-08-10 20:26 | NUR ---
VSS, pt AWAKE AND IN CHAIR TALKING TO FAMILY ON PHONE. MEDS GIVEN, SEE EMAR. WILL HOLD OFF ON ASSESSMENT UNTIL pt IS OFF OF PHONE AND DONE WITH EVENING SHOWER. pt A/OX4 AND INDEPENDENT IN ROOM WITH SBA FROM . NO ADDITIONAL NEEDS, CALL LIGHT IN REACH.
--- NOTE | 2021-08-10 21:30 | NUR ---
ASSESSMENT COMPLETE, PRN TYLENOL GIVEN FOR 2/10 PELVIC PAIN. pt A/OX4, DENIES PAIN AND NAUSEA. PUDDING, FRESH WATER, AND HOT WATER PROVIDED. TELE#[address], SINUS RHYTHM. HR WNL. pt DENIES ADDITIONAL NEEDS. IV SITE WNL. CALL LIGHT IN REACH AND TIERRA IN ROOM.
--- NOTE | 2021-08-11 00:36 | NUR ---
pt RESTING IN BED WITH EYES CLOSED, RR EVEN AND UNLABORED. NO DISTRESS NOTED, TELE #[address] REMAINS WNL, SINUS RHYTHM. CALL LIGHT IN REACH AND TIERRA IN ROOM.
--- NOTE | 2021-08-11 02:27 | NUR ---
ROUNDED ON pt, pt AWOKE TO VOICE, PREPARING TO PUMP. NO NEEDS VERBALIZED. pt PLANS TO CALL ONCE PUMPING IS COMPLETE. CALL LIGHT IN REACH.
--- NOTE | 2021-08-11 02:46 | NUR ---
CALL LIGHT ANSWERED, PUMPED BREAST MILK IN FRIDGE. BP COLECTED PER pt REQUEST, WNL AND CHARTED. NO NEW ASSESSMENT FINDINGS, FRESH WATER PROVIDED. HASBAND IN ROOM. CALL LIGHT IN REACH.
--- NOTE | 2021-08-11 04:51 | NUR ---
pt RESTING IN BED WITH EYES CLOSED, RR EVEN AND UNLABORED. TELE#[address], HR 70-80'S. SINUS RHYTHM. CALL LIGHT IN REACH AND TIERRA IN ROOM.
--- NOTE | 2021-08-11 05:20 | NUR ---
IN TO GET VITALS
--- NOTE | 2021-08-11 05:30 | NUR ---
hr up to 130's this rn in room to assess, pt reports just stretching. requesting scheduled 0800 midodrine early. this rn on phone with dr barros, hr then spiked again to 142, per md junior to give midodrine early. fresh water and snack provided with med. pt reported some dizziness this time and reports recently up to void. hr returning to baseline, will continue to monitor. call light in reach. coffee provided to raj.
--- NOTE | 2021-08-11 06:05 | NUR ---
prn zofran given per pt request, pt jittery in bed. therapeutic communication provided. no further needs, call light in reach.
--- NOTE | 2021-08-11 07:00 | NUR ---
Report received from Veena FOFANA. Pt resting in bed, alert and oriented, HRR and WNL. No sx at this time. Saline locked, on room air. Pt orders breakfast and has no needs. Will continue plan of care.
--- NOTE | 2021-08-11 08:05 | NUR ---
Pt requests compression stockings and ABD binder for symptoms, provided. Discussed plan of care with patient and . Patient denies symptoms, HRR, tele in place.
--- NOTE | 2021-08-11 08:30 | NUR ---
Scheduled medications administered, assessment complete. Tele in place. Pt states no symptoms at this time, tele in place. HRR in 70's.
--- NOTE | 2021-08-11 11:26 | NUR ---
PT NOT STATES "NOT FEELING WELL, LIGHT HEADED, FLUSHED AND JITTERY" CT DONG IN ROOM. VITALS TAKEN
--- NOTE | 2021-08-11 11:30 | NUR ---
Pt states not feeling well, this RN in room to assess. HR in 90's, BP taken, laid back and cool cloth given for forehead. HR returns to 60-70's, but patient states "flushed, vision changes, and weak". Ambulates to BR once stable with this RN to void. Back to bed and states feeling "Better", IVF infusing WNL, pt states no further needs at this time. Will continue to monitor.
--- NOTE | 2021-08-11 12:20 | NUR ---
Pt calls and states IV is burning from insertion site up to her shoulder. Flushed and pain relieves, pt attributes burning to potassium additive in fluid, requests another route for administration, will discuss with MD, IV stopped for this time
--- NOTE | 2021-08-11 13:20 | NUR ---
Scheduled medications administered, assessment complete. Pt sitting up in bed with family at bedside. She states no needs at this time. Call light in reach.
--- NOTE | 2021-08-11 14:16 | NUR ---
PATIENT SITTING UP IN BED HOLDING BABY, I ROOM. VITALS AND I&O'S CHARTED. CALL LIGHT IN REACH. NO FURTHER NEEDS AT THIS TIME.
--- NOTE | 2021-08-11 15:05 | NUR ---
In room to assess patient and administer scheduled medications. Patient stands at bedside to adjust ABD binder and HR increases to 130. She continues to become dizzy and weak with any exertion. Meds given, discussed plan of care.
--- NOTE | 2021-08-11 17:00 | NUR ---
Scheduled midodrine administered, pt sitting up in chair, states ambulated to BR with accompanying lightheadedness and weakness. assists. Tele in place, no current needs. Will continue to monitor.
--- NOTE | 2021-08-11 18:00 | NUR ---
Discussed plan of care with patient and provided written article/education re: current illness.
--- NOTE | 2021-08-11 18:16 | NUR ---
PATIENT IN CHAIR, RN AND IN ROOM. VITALS AND I&O'S CHARTED. SHOWER SUPPLIES PROVIDED. FRESH WATER GIVEN. CALL LIGHT IN REACH. NO FURTHER NEEDS AT THIS TIME.
--- NOTE | 2021-08-11 19:00 | NUR ---
SHIFT REPORT RECEIVED FROM FILOMENA DONG AT BEDSIDE. pt AWAKE AND RESTING IN CHAIR, ALSO IN ROOM. TELE#[address], HR HR WNL, SINUS RHYTHM. NO NEEDS VERBALIZED. CALL LIGHT IN REACH.
[2021-08-11] MEDS ORDERED: MIDODRINE HCL5 MG PO (19:38)
[2021-08-11] MEDS ORDERED: SODIUM CHLORIDE1 GM PO (19:39)
--- NOTE | 2021-08-11 20:53 | NUR ---
PATIENT SITTING ON EDGE OF BED GETTING READY FOR SHOWER, AT BEDSIDE. VITALS AND I&O'S CHARTED. FRESH WATER GIVEN. RN IN ROOM. WILL ASSIST WITH SHOWER. CALL LIGHT IN REACH. NO FURTHER NEEDS AT THIS TIME.
--- NOTE | 2021-08-11 20:59 | NUR ---
ASSESSMENT COMPLETE, SCHEDULED MEDS AND PRN TYLENOL AND PRN TUMS GIVEN (SEE EMAR). pt REPORTS 2/10 GENERALIZED PAIN AND SLIGHT H/A. REPORTS SLIGHT BLRRED/HAZY VISION SINCE EARLIER THIS AFTERNOON, WILL MONITOR. TIERRA IN ROOM AND ASSISTS WITH CARE. CMS INTACT, pt DENIES NUMBNESS AND TINGLING. pt TO SHOWER, TO ASSIST. IV SITE AND TELE WRAPPED. NO ADDITIONAL NEEDS, CALL LIGHT IN REACH.
--- NOTE | 2021-08-11 22:30 | NUR ---
IN ROOM TO FLUSH IV SITE AFTER SHOWER, SITE WNL. NO ADDITIONAL NEEDS, CALL LIGHT IN REACH.
--- NOTE | 2021-08-12 01:16 | NUR ---
pt RESTING IN BED WITH EYES CLOSED. RR EVEN AND UNLABORED, NO DISTRESS NOTED. TELE#[address], HR UPPER 50'S, SINUS NEIL. CALL LIGHT IN REACH AND IN ROOM.
--- NOTE | 2021-08-12 02:23 | NUR ---
pt WOKEN UP AT THIS TIME PER REUEST TO PUMP. NO ADDITIONAL NEEDS, WILL CALL TERRITORY ACCOUNT REPRESENTATIVE ONCE SHE IS DONE PUMPING. CALL LIGHT IN REACH.
--- NOTE | 2021-08-12 02:48 | NUR ---
CALL LIGHT ANSWERED, PUMPED BREAST MILK IN FRIDGE WITH pt STICKER. NO ACUTE CHANGES, pt FEELS VISION IMPROVING AND REPORTS EARLIER HEADACHE RESOLVED. CMS INTACT, pt DENIES NUMBNESS AND TINGLING. FRESH WATER AT BEDSIDE, CALL LIGHT IN REACH.
--- NOTE | 2021-08-12 04:11 | NUR ---
pt RESTING IN BED WITH EYES CLOSED, RR EVEN AND UNLABORED. NO DISTRESS NOTED. TELE#7 INPLACE, HR 70'S. NSR. CALL LIGHT IN REACH.
--- NOTE | 2021-08-12 04:43 | NUR ---
TELE BATTERY REPLACED, NO ADDITIONAL NEEDS VERBALIZED BY pt. CALL LIGHT IN REACH.
--- NOTE | 2021-08-12 05:46 | NUR ---
pt UP TO VOID, HR UP TO 155, pt REPORTS DIZZINESS. MD CALLED. PER DR ARMIJO, RIC TO GIVE AM SCHEDULED MIDODRINE EARLY AT THIS TIME. REMAINING VSS, HR RETURNED TO BASELINE, NOW IN 60-70'S. FRESH WATER PROVIDED. pt PREPARING TO PUMP. NO FURTHER NEEDS, CALL LIGHT IN REACH. PRN ZOFRAN ALSO GIVEN, SEE EMAR.
--- NOTE | 2021-08-12 07:00 | NUR ---
Report received from Veena FOFANA. Pt resting in bed, HR noted at 58, sinus bradycardia. Pt has no needs at this time. Will continue plan of care.
--- NOTE | 2021-08-12 07:40 | NUR ---
Spoke with Sarah and spouse. Pt cont. with symptomatic tachycardia and is concerned for dc. Her PcP, Dr. Rodríguez, will be on as the hospital ist at 2 pm today and will see pt and determine if she qualifies for IP. Pt lives with her spouse and 2 children in [place]. She does not use any DME. 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 DC plan is to go home with spou pse when medication adjusted and hr controlled.
--- NOTE | 2021-08-12 09:00 | NUR ---
Scheduled medications administered, assessment complete. Pt on tele, HR in 60's range, no symptoms at this time. Pt states had episode of tachycardia earlier this morning while resting in bed and HR increased to 95. Saline locked, on room air. Pt states having esophogeal/chest discomfort, PRN antacids provided. Discussed plan of care.
--- NOTE | 2021-08-12 10:50 | NUR ---
Noted tele reading 116 HR, pt standing in bathroom brushing teeth with her at side. Pt states no needs at this time. Will continue to monitor.
--- NOTE | 2021-08-12 11:19 | NUR ---
Spoke with Stella from [facility] and notified they are unable to take any pts for the next 2 weeks due to staffing. [facility] in [place] is also unable to take pts at this time. [facility] in [place] is unable to take as pt is not in Network. I faxed the chart to [facility] in [place] last week. I attempted to call this AM and left a message asking if they have accepted this pt.
--- NOTE | 2021-08-12 13:00 | NUR ---
Scheduled medication administered, patient resting in bed eating lunch. Assessment complete, tele in place, HR 70's. She states no needs at this time.
--- NOTE | 2021-08-12 13:06 | NUR ---
PT ALERT, ORIENTED AND SUPPORTED BY MARTIR MAYORGA. PT SOMEWHAT DISCOURAGED WITH THIS RECENT TURN OF EVENTS WITH HER HEALTH. PT HAS A MONTH OLD AT HOME AND IS STRESSED OVER NOT BRING ABLE TO CARE FOR HER LITTLE BOY.DR SHAH IS TO BE IN THIS PM-PT WAITING FOR HIM. PT REQUESTED PRAYER, GAVE TOMMY CALERO AND ENCOURAGEMENT. WILL CONTINUE TO FOLLOW NEEDED
--- NOTE | 2021-08-12 14:10 | NUR ---
PATIENT IN BED RESTING AT THIS TIME, IN ROOM. VITALS AND I&O'S CHARTED. FRESH WATER GIVEN. CALL LIGHT IN REACH. NO FURTHER NEEDS AT THIS TIME.
--- NOTE | 2021-08-12 14:40 | NUR ---
Dr. Rodríguez in to see pt.
--- NOTE | 2021-08-12 14:55 | NUR ---
Scheduled medications adminstered, assessment complete. Pt VSS and has no needs at this time.
--- NOTE | 2021-08-12 16:00 | NUR ---
NOtfied by Dr. Rodríguez, pt is now and IP.
--- NOTE | 2021-08-12 17:58 | NUR ---
Medication administered, MRI consent obtained, discussed plan of care with labs, medications, imaging. Pt has no questions at this time.
--- NOTE | 2021-08-12 18:19 | NUR ---
PATIENT SITTING ON BED WATCIHNG TV. VITALS AND I&O'S CHARTED. DINNER AT BEDSIDE. SHOWER SUPPLIES PROVIDED, PATIENT WILL SHOWER BEFORE BED WITH 'S ASSIST. CALL LIGHT IN REACH. NO FURTHER NEEDS AT THIS TIME.
--- NOTE | 2021-08-12 19:32 | NUR ---
REPORT RECEIVED FROM DAY SHIFT RN. PT SITTING IN RECLINER HOLDIN BABY. ALERT AND ORIENTED. DENIES NEEDS AT THIS TIME. WHITE BOARD UPDATED. CALL LIGHT IN REACH.
--- NOTE | 2021-08-12 22:13 | NUR ---
PT WAS UP TO INDEPENDENLTY TO SHOWER. HR NOTED IN 120'S AT TIMES. DENIES LIGHTHEADEDNESS OR FEELING FAINT. PT DID REPORT SHE FELT "PRESSURE" IN HER CHEST WHILE SHOWERING. IN BED AT THIS TIME. EVENING ASSESSMENT COMPLETE. SCHEDULED MEDS ADMINISTERED PER EMAR. PRN ADMINISTERED FOR C/O PELVIC PAIN. TELE #[address] HR 70'S AT THIS TIME. PT REPORTS DECREASE IN VAGINAL BLEEDING. PT CONTINUING TO COLLECT URINE FOR 24 HOUR SAMPLE. IN ROOM TO ASSIST PT WITH CARES. PT DENIES QUESTIONS OR CONCERNS AT THIS TIME. CALL LIGHT IN REACH.
--- NOTE | 2021-08-13 00:08 | NUR ---
PT RESTING IN BED WITH EYES CLOSED. HR 60'S. NO APPARENT DISTRESS.
--- NOTE | 2021-08-13 02:12 | NUR ---
SCHEDULED MEDS ADMINISTERED. VS WNL. RESTING HR IN THE 60'S. HR UP TO 120'S WITH ACTIVITY. PT SITTING UP IN BED TO PUMP AND HAVE PUDDING. DENIES PAIN OR NAUSEA AT THIS TIME. FRESH WATER PROVIDED. NO FURTHER NEEDS. REMAINS IN ROOM.
--- NOTE | 2021-08-13 05:10 | NUR ---
TELE #7 SR. HR 60'S.
--- NOTE | 2021-08-13 06:47 | NUR ---
IN ROOM TO ADMINISTER SCHEDULED MEDICATIONS. VS AND I&O COMPLETE. PT DENIES PAIN OR NAUSEA AT THIS TIME. HR 60'S-70'S. FRESH WATER AND PUDDING PROVIDED. BREAKFAST ORDERED. SPOUSE REMAINS IN ROOM. NO FURTHER NEEDS. CALL LIGHT IN REACH.
--- NOTE | 2021-08-13 08:18 | NUR ---
PT SITTING UP IN BED WATCHING TV. IN ROOM. PT INDEPENDENT IN ROOM. FRESH ICE WATER GIVEN. WHITE BOARD UPDATED. CALL LIGHT WITHIN REACH. NO FURTHER NEEDS AT THIS TIME.
--- NOTE | 2021-08-13 09:55 | NUR ---
Patient left unit for imaging.
--- NOTE | 2021-08-13 11:31 | NUR ---
Patient back from imaging. Tele back in place, heart rate trending 60-80's. Patient reports continued blurry vision. at bedside assisting wth cares. No distress at this time. Encouraged patient to call staff if she has needs.
--- NOTE | 2021-08-13 13:46 | NUR ---
PT SITTING IN BED, TIERRA AT BS. PT HAS JUST RETURNED FROM MRI-WAITING THE RESULTS. PT HASN'T BEEN ABLE TO SLEEP WELL, ENCOURAGED TO NAP IF SHE GETS A CHANCE. PT STRUGGLING WITH WHAT SHE FEELS IS THE UNKNOWN. GAVE PT TIME TO EXPRESS HERSELF. HARD BEINGAWAY FROM HER CHILDREN-ONE A . HAD PRAYER WITH BOTH, GAVE ENCOURAGEMENT AND LEFT A G.POST. WILL FOLLOW
--- NOTE | 2021-08-13 14:18 | NUR ---
PT PUMPING MILK FOR BABY, ON EDGE OF BED. ICE BUCKETS REFILLED FOR URINE SAMPLES. GOOD OUTPUT. ICE WATER REFILLED. CALL LIGHT WITHIN REACH. NO FURTHER NEEDS AT THIS TIME.
--- NOTE | 2021-08-13 14:35 | NUR ---
Tylenol 500mg po admin for reported back pain.
--- NOTE | 2021-08-13 14:45 | NUR ---
Pt feeling better today. Medications have been adjusted per Dr. Rodríguez. Pt states she is feeling so much better and is up walking in the room. Pt denies tachycardia symptoms at this time.
--- NOTE | 2021-08-13 15:49 | NUR ---
Patient ambulated in hallway with this RN. Patient reports she felt a bit short of breath with ambulation. Per tele, pt's heart rate increased to 115bpm, non sustained. Updated Dr. Rodríguez. Dr. Rodríguez would like staff to continue walking patient in hallway intermittently.
--- NOTE | 2021-08-13 19:20 | NUR ---
REPORT RECEIVED FROM DAY SHIFT RN. PT AMB IN EARLY WITH . HR 113-122. DENIES NEEDS AT THIS TIME.
--- NOTE | 2021-08-13 20:15 | NUR ---
PT BACK TO ROOM FROM AMBULATING WITH . BRITTNEY WELL. REPORTS "PRESSURE" IN HER CHEST WITH ACTIVITY. ALSO REPORTS NOTEABLE WEAKNESS THAT CAUSED LOWER BACK/MUSCLE PAIN WHILE AMBULATING. REPORTS BLURRED VISION IMPROVED SINCE AM. NO FURTHER NEEDS AT THIS TIME. CALL LIGHT IN REACH.
--- NOTE | 2021-08-13 21:30 | NUR ---
EVENING ASSESSMENT COMPLETE. SCHEDULED MEDS ADMINISTERED PER EMAR. PRN FOR PAIN ADMINISTERED FOR C/O BACK PAIN. PT DENIES NAUSEA. PT WAS UP AND SHOWERED INDEPENDENTLY, BRITTNEY WELL. HR UP TO 130'S WITH ACTIVITY. IV DRESSING CHANGED AFTER SHOWER. FRESH WATER AND WARM BLANKETS PROVIDED. WILL STAY IN ROOM. PT DENIES FURTHER NEEDS. CALL LIGHT IN REACH.
--- NOTE | 2021-08-14 00:37 | NUR ---
PT RESTING IN BED WITH EYES CLOSED. TELE #7 SR. HR 50'S-60'S.
--- NOTE | 2021-08-14 02:22 | NUR ---
SCHEDULED MEDS ADMINISTERED PER EMAR. PT DENIES PAIN OR NAUSEA. REPORTS SHE IS RESTING WELL. PUDDING AND FRESH WATER PROVIDED. DENIES NEEDS. CALL LIGHT IN REACH.
--- NOTE | 2021-08-14 04:30 | NUR ---
PT RESTING IN BED. TELE #7 SR. HR HIGH 50'S-60'S.
--- NOTE | 2021-08-14 06:08 | NUR ---
VS AND I&O COMPLETE. SCHEDULED MEDS ADMINSITERED PER EMAR. PT DENIES PAIN OR NAUSEA. DENIES CHEST "PRESSURE" OR PALPITATIONS. REPORTS FEELING BETTER THIS AM AFTER GETTING SOME SLEEP. TELE #7 SR. HR 60'S. DENIES NEEDS. CALL LIGHT IN REACH.
--- NOTE | 2021-08-14 08:45 | NUR ---
PATIENT IS RESTING IN BED. IN ROOM. PATIENT REQUESTED ZOFRAN FOR NAUSEA BEFORE EATING BREAKFAST. I NOTIFIED NURSE KAMILAH. PATIENT DOES NOT NEED ANYTHING ELSE AT THIS TIME. CALL LIGHT IN REACH.
--- NOTE | 2021-08-14 08:50 | NUR ---
Spoke with Nina. States she is not feeling as well today as yesterday. C/o nausea and feeling like she will vomit after eating this am. Concerned medications are slowing her gut down. Does feel less light headed. Encouraged her to discuss with Dr. Rodríguez when she sees.
--- NOTE | 2021-08-14 09:09 | NUR ---
PATIENT PLANS TO AMBULATE IN HALLWAY AT 1000, SO THAT HER 0930 MEDICATIONS ARE IN EFFECT.
--- NOTE | 2021-08-14 10:00 | NUR ---
PT HAVING AN EPISODE OF N/V. DR SHAH NOTIFIED. MEDICATION ORDERED.
--- NOTE | 2021-08-14 10:45 | NUR ---
PT AMBULATES AROUND MED-SURG WITH W/O ISSUE. PTS HR 80-90S WITH AMBULATION.
--- NOTE | 2021-08-14 13:01 | NUR ---
PT ALERT, ORIENTED AND VISITING WITH HER TIERRA AND MOTHER BY HUYEN. PT SLEPT MUCH BETTER LAST NIGHT. HAS HAD SOME NAUSEA ISSUES THIS AM. WAITING ON SOME TEST RESULTS, HOPES TO DC TODAY. DR SHAH FEELS SHE NEEDS TO SEE NEUROLIGIST, BUT HAVING DIFFICULTY LOCATING ONE THAT WILL TAKE HER ON A PT. MOST DO NOT WANT TO CARE FOR A PT OUT OF THEIR LOCAL AREA. FRUSTRATING TO SAY THE LEAST. OPEN TO LITO COLLIER BOISE ET. BRODIE PRAYER WILL CONTINUE TO FOLLOW
--- NOTE | 2021-08-14 13:14 | NUR ---
PTS BRINGS THEIR BABY TO VISIT PT. PT ORDERS LUNCH. DENIES NEEDS AT THIS TIME. HR 61.
[2021-08-14] MEDS ORDERED: ONDANSETRON ODT8 MG PO (15:09)
[2021-08-14] MEDS ORDERED: BUSPIRONE HCL5 MG PO (15:09)
[2021-08-14] MEDS ORDERED: MIDODRINE HCL5 MG PO (15:09)
--- NOTE | 2021-08-14 16:13 | NUR ---
WAITING ON PHARMACY TO ASSIST IN PT D/C. PTS IV REMOVED. CATHETER IN-TACT. F/U APPOINTMENT MADE.
== END 2021-08-14 17:20 | disposition home or self-care (01) | DRG 776 ==
LOC: ED 05:18 → MS 05:20
PROVIDERS: ADMIT Internal Medicine; ATTEND Internal Medicine
DX: O99.43 Diseases of the circulatory system complicating the puerperium (principal); I49.8 Other specified cardiac arrhythmias; Z20.822 Contact with and (suspected) exposure to COVID-19; Z88.5 Allergy status to narcotic agent
CPT/HCPCS: 70551; 74177; 76830; 76856; 80048; 80053; 81001; 83735; 84100; 84443; 84484; 85025; 85610; 85730; 93005; 93010; 93306; 96376; 99285-25; C9803; G0378; J2405; J3480; J7030; J7060; J7120; Q9967; U0003

== ENCOUNTER → 2022-03-12 | Outpatient (CLI) | payer SELFPAY ==
[~2022-03-12] MED LIST changes: +BUSPIRONE HCL5 MG PO; +FLUCONAZOLE150 MG PO; +METOCLOPRAMIDE10 MG PO; +MIDODRINE HCL5 MG PO; +ONDANSETRON HCL4 MG PO; +ONDANSETRON ODT8 MG PO; +PROBIOTIC1 EAC1 PO; +SODIUM CHLORIDE1 GM PO; +VITAMIN C1000 MG PO; +VITAMIN D350 MC3 PO
--- NOTE | 2022-03-13 08:17 | NUR ---
Both nares swabbed for Covid-19 without complication. Rapid PCR sample taken to [facility] lab.
== END | disposition home or self-care (01) ==
LOC: LAB 23:04
DX: Z20.822 Contact with and (suspected) exposure to COVID-19 (principal)
CPT/HCPCS: 87502; U0003